=== PATIENT | male | born 1990 | race African-American/Black ===

== ENCOUNTER 2017-02-11 15:50 | Emergency (ER) | payer OTHER ==
[~2017-02-11] VITALS: Ht 185.4 cm; Wt 68.0 kg
[2017-02-11 16:36] LABS: URINE BILIRUBIN NEGATIVE (Negative); URINE BLOOD NEGATIVE (Negative); URINE COLOR YELLOW; URINE GLUCOSE-RANDOM* NEGATIVE (Negative); URINE KETONES NEGATIVE (Negative); URINE LEUKOCYTES-REFLEX NEGATIVE (Negative); URINE PROTEIN (DIPSTICK) NEGATIVE (Negative); URINE SPECIFIC GRAVITY 1.025 (1.003-1.035); URINE UROBILINOGEN 0.2 E.U./dl (0.2-1.0)
[2017-02-11] MEDS ORDERED: MOBIC15 MG PO (18:14)
[2017-02-11] MEDS ORDERED: DOXYCYCLINE 10100 MG PO (18:14)
[2017-02-11 18:55] VITALS: BP 125/59
== END 2017-02-11 18:56 | disposition home or self-care (01) ==
LOC: ER 15:50
PROVIDERS: Physician Assistant
DX: N45.1 Epididymitis (principal)

== ENCOUNTER 2017-02-16 01:04 | Emergency (ER) | payer OTHER ==
[~2017-02-16] VITALS: Ht 185.4 cm; Wt 68.0 kg
--- NOTE | ~2017-02-16 | EKG ---
[facility] [place] [address] ELECTROCARDIOGRAM REPORT Name: STORMY ALEGRE Room #: [id number] Admission: 02/16/17 Attend Phys: Discharge: 02/16/17 Date of : 89 Report #: [id number] THIS REPORT FOR: //name// [facility] ED Test Date: 2017-02-16 Test Time: 01:43:41 Pat Name: STORMY ALEGRE Department: Room: Gender: M Manager Of Internal Audit: bib : 1990 Requested By: Isabela Vazquez Order Number: [id number] MD: Berhane Montana Measurements Intervals [place] Rate: 77 P: 78 HI: 148 QRS: 87 QRSD: 98 T: 66 QT: 383 QTc: 434 Interpretive Statements Sinus rhythm RSR' in V1 or V2, probably normal variant No previous ECG available for comparison Electronically Signed On 02-17-2017 8:30:42 CDT by Berhane Montana [email or web address] <ELECTRONICALLY SIGNED> By: Berhane Montana MD, [facility] 02/17/17 0830 [id number] Berhane Montana MD, FACC /EPI
[~2017-02-16 01:04] MED LIST: DOXYCYCLINE 10100 MG PO; MOBIC15 MG PO
[2017-02-16 01:29] LABS: BASOPHILS 0.3 % (0.0-2.0); EOSINOPHILS 0.5 % (0.0-3.0); HEMATOCRIT 38.8 % (42.0-52.0); HEMOGLOBIN 13.1 gm/dL (14.0-18.0); LYMPHOCYTES 22.4 % (24.0-44.0); MCH 29.6 pg (26.0-34.0); MCHC 33.8 g/dL (28.0-37.0); MCV 87.6 fL (80.0-100.0); MONOCYTES 3.1 % (1.0-8.0); PLATELET COUNT 222 thou/uL (150-400); POLYS 73.7 % (36.0-66.0); RBC 4.43 mil/uL (4.50-6.00); RDW 11.9 % (10.5-14.5); WBC 9.5 thou/uL (4.0-11.0)
[2017-02-16 01:30] LABS: MANUAL DIFF NO
[2017-02-16 01:37] LABS: ANION GAP 9 mmol/L (7-16); BUN 12 mg/dL (7-18); CHLORIDE 103 mmol/L (98-107); CO2 29 mmol/L (21-32); GLUCOSE 113 mg/dL (74-106); POTASSIUM 3.4 mmol/L (3.5-5.1); SODIUM 141 mmol/L (136-145)
[2017-02-16 01:46] LABS: ALBUMIN 4.3 g/dL (3.4-5.0); ALKALINE PHOSPHATASE 57 U/L (46-116); DIRECT BILIRUBIN 0.1 mg/dL (<0.1-0.3); SGOT 20 U/L (15-37); SGPT 17 U/L (30-65); TOTAL BILIRUBIN 0.7 mg/dL (<0.1-1.0); TOTAL PROTEIN 7.7 g/dL (6.4-8.2); TROPONIN-I < 0.04 ng/mL (<0.04-0.07)
[2017-02-16 03:00] LABS: URINE BILIRUBIN NEGATIVE (Negative); URINE BLOOD NEGATIVE (Negative); URINE COLOR YELLOW; URINE GLUCOSE-RANDOM* NEGATIVE (Negative); URINE KETONES NEGATIVE (Negative); URINE NITRITE NEGATIVE (Negative); URINE PROTEIN (DIPSTICK) NEGATIVE (Negative); URINE SPECIFIC GRAVITY >= 1.030 (1.003-1.035); URINE UROBILINOGEN 0.2 E.U./dl (0.2-1.0)
[2017-02-16 03:19] VITALS: BP 114/62
== END 2017-02-16 03:19 | disposition home or self-care (01) ==
LOC: ER 01:04
PROVIDERS: Emergency Medicine
DX: N50.812 Left testicular pain (principal); R07.9 Chest pain, unspecified; R10.9 Unspecified abdominal pain

== ENCOUNTER 2019-09-26 22:07 | Emergency (ER) | payer OTHER ==
[~2019-09-26] VITALS: Ht 188 cm; Wt 68.0 kg
[2019-09-26 22:55] VITALS: BP 128/80
== END 2019-09-26 22:56 | disposition home or self-care (01) ==
LOC: ER 22:07
PROVIDERS: Emergency Medicine
DX: A64 Unspecified sexually transmitted disease (principal)

== ENCOUNTER 2020-02-04 11:03 | Emergency (ER) | payer OTHER ==
[~2020-02-04] VITALS: Ht 188 cm; Wt 68.0 kg
[2020-02-04] MEDS ORDERED: KEFLEX500 M1 PO (12:35)
[2020-02-04 12:55] VITALS: BP 129/78
== END 2020-02-04 12:55 | disposition home or self-care (01) ==
LOC: ER 11:03
DX: L73.9 Follicular disorder, unspecified (principal); L01.00 Impetigo, unspecified